=== PATIENT | male | born 1950 | race American Indian/Alaskan Native ===

== ENCOUNTER 2021-01-16 13:40 | Observation (INO) | payer SELFPAY ==
--- NOTE | 2021-01-16 13:56 | Emergency Department Report ---
ED Chest Pain HPI - General Chief Complaint: Chest Pain Stated Complaint: CHEST PAIN PUI?: No Time Seen by Provider: 01/16/21 13:42 Source: patient, RN notes reviewed Mode of arrival: Stretcher Limitations: No Limitations - History of Present Illness Initial Comments: The patient is a 71-year-old gentleman. He is not known to myself previously. He has a history of hypertension, coronary artery disease, status post CABG. He is brought to the hospital by EMS with a complaint of chest pain. The patient has reported chronic sternal chest pain since his CABG a few months ago at [facility] in [facility]. However, over the past few days, he has developed central and left-sided chest pain, which he states does not radiate to the back, arms or neck. He denies vomiting, diaphoresis and exertional shortness of breath. He does report multiple psychosocial stressors. He states that his pain started before a recent 2-hour trip in the airplane to [place]. He denies Covid symptoms. He currently denies headache, neck pain, abdominal pain, vomiting, diaphoresis, hematemesis and bright red blood per rectum. He reports compliance with his outpatient medications MD Complaint: chest pain -: Gradual, days(s) Onset: during rest Pain Location: substernal, left chest Quality: tightness Consistency: intermittent Improves With: nothing Worsens With: nothing Aspirin use within the Past 7 Days: (1) Yes - Related Data On Oral Contraceptives: No Home Medications Medication Instructions Recorded Confirmed Last Taken Aspirin [Aspirin BABY CHEW TAB] 81 mg PO QDAY 01/16/21 01/16/21 Unknown Finasteride [Proscar] 5 mg PO QDAY 01/16/21 01/16/21 Unknown Furosemide [Lasix] 20 mg PO QDAY 01/16/21 01/16/21 Unknown Melatonin [Melatonin 10MG TAB] 10 mg PO QHS 01/16/21 01/16/21 Unknown Tamsulosin [Flomax] 0.4 mg PO QDAY 01/16/21 01/16/21 Unknown lisinopriL [Lisinopril] 20 mg PO QDAY 01/16/21 01/16/21 Unknown Allergies Allergy/AdvReac Type Severity Reaction Status Date / Time No Known Allergies Allergy Unverified 01/16/21 13:44 Heart Score - HEART Score History: Slightly suspicious EKG: Non-specific Age: > 65 Risk factors: > 3 risk factors or hx of atherosclerotic disease Troponin: < normal limit HEART Score: 5 - EKG Read Time Time EKG Completed: 13:53 EKG Read Time: 13:53 - Critical Actions Critical Actions: 4-6 pts:12-16.6% risk of adverse cardiac event. Should be admitted ED Review of Systems ROS: Stated complaint: CHEST PAIN Other details as noted in HPI Constitutional: denies: fever Eyes: denies: eye discharge ENT: denies: epistaxis Respiratory: denies: cough Cardiovascular: chest pain Gastrointestinal: denies: abdominal pain Musculoskeletal: denies: back pain Neurological: weakness Psychiatric: anxiety ED Past Medical Hx - Medications Home Medications: Home Medications Medication Instructions Recorded Confirmed Last Taken Type Aspirin [Aspirin BABY CHEW TAB] 81 mg PO QDAY 01/16/21 01/16/21 Unknown History Finasteride [Proscar] 5 mg PO QDAY 01/16/21 01/16/21 Unknown History Furosemide [Lasix] 20 mg PO QDAY 01/16/21 01/16/21 Unknown History Melatonin [Melatonin 10MG TAB] 10 mg PO QHS 01/16/21 01/16/21 Unknown History Tamsulosin [Flomax] 0.4 mg PO QDAY 01/16/21 01/16/21 Unknown History lisinopriL [Lisinopril] 20 mg PO QDAY 01/16/21 01/16/21 Unknown History ED Physical Exam - General Limitations: No Limitations General appearance: alert, in no apparent distress - Head Head exam: Present: atraumatic, normocephalic - Eye Eye exam: Present: normal appearance, EOMI. Absent: nystagmus - ENT ENT exam: Present: normal exam, normal orophraynx, mucous membranes moist, normal external ear exam - Neck Neck exam: Present: normal inspection, full ROM. Absent: tenderness, meningismus - Respiratory Respiratory exam: Present: normal lung sounds bilaterally. Absent: respiratory distress, wheezes, rales, rhonchi, stridor, decreased breath sounds - Cardiovascular Cardiovascular Exam: Present: regular rate, normal rhythm, normal heart sounds. Absent: bradycardia, tachycardia, irregular rhythm, systolic murmur, diastolic murmur, rubs, gallop - GI/Abdominal GI/Abdominal exam: Present: soft. Absent: distended, tenderness, guarding, r ebound, rigid, pulsatile mass - Rectal Rectal exam: Present: deferred - Extremities Exam Extremities exam: Present: normal inspection, full ROM, other (2+ pulses noted in the bilateral upper and lower extremities. There is no palpable cord. negative Homans sign. Muscular compartments are soft. The pelvis is stable.). Absent: pedal edema, calf tenderness - Back Exam Back exam: Present: normal inspection, full ROM. Absent: tenderness, CVA tenderness (R), CVA tenderness (L), paraspinal tenderness, vertebral tenderness - Neurological Exam Neurological exam: Present: alert, oriented X3, other (No facial droop. Tongue midline. Extraocular movements intact bilaterally. Facial sensation intact to light touch in V1, V2, V3 distribution bilaterally. 5 and a 5 strength in 4 extremities. Sensation intact to light touch in 4 extremities.). Absent: motor sensory deficit - Psychiatric Psychiatric exam: Present: normal affect, normal mood - Skin Skin exam: Present: warm, dry, intact, normal color. Absent: rash ED Course Vital Signs 01/16/21 01/16/21 01/16/21 13:53 14:00 14:08 Pulse Rate 68 65 Respiratory 14 20 Rate Blood Pressure 140/81 O2 Sat by Pulse 99 98 99 Oximetry 01/16/21 01/16/21 01/16/21 14:16 14:30 14:45 Pulse Rate 68 61 68 Respiratory 18 14 17 Rate Blood Pressure 135/87 141/84 162/86 O2 Sat by Pulse 99 97 98 Oximetry 01/16/21 01/16/21 01/16/21 15:00 15:16 15:30 Pulse Rate 74 74 69 Respiratory 17 17 16 Rate Blood Pressure 177/92 168/90 181/89 O2 Sat by Pulse 98 94 99 Oximetry 01/16/21 01/16/21 01/16/21 15:46 16:00 16:16 Pulse Rate 70 60 66 Respiratory 18 15 14 Rate Blood Pressure 172/93 175/83 185/91 O2 Sat by Pulse 96 98 99 Oximetry 01/16/21 01/16/21 16:30 16:40 Pulse Rate 73 61 Respiratory 19 17 Rate Blood Pressure 177/87 177/87 O2 Sat by Pulse 99 99 Oximetry RAFI score - Rafi Score Age > 65: (1) Yes Aspirin use within the Past 7 Days: (1) Yes 3 or more CAD Risk Factors: (1) Yes 2 or more Angina events in past 24 hrs: (1) Yes Known CAD with more than 50% Stenosis: (0) No Elevated Cardiac Markers: (0) No ST Deviation Greater than 0.5mm: (0) No RAFI Score: 4 ED Medical Decision Making - Lab Data Result diagrams: 01/16/21 14:34 01/16/21 14:34 Vital Signs 01/16/21 14:08 O2 Sat by Pulse 99 Oximetry Lab Results 01/16/21 01/16/21 01/16/21 Range/Units 14:34 14:34 14:34 WBC 3.9 L (4.5-11.0) K/mm3 RBC 4.36 (3.65-5.03) M/mm3 Hgb 12.7 (11.8-15.2) gm/dl Hct 39.1 (35.5-45.6) % MCV 90 (84-94) fl MCH 29 (28-32) pg MCHC 33 (32-34) % RDW 15.5 H (13.2-15.2) % Plt Count 221 (140-440) K/mm3 Lymph % (Auto) 41.0 H (13.4-35.0) % Nelson % (Auto) 12.7 H (0.0-7.3) % Eos % (Auto) 3.9 (0.0-4.3) % Baso % (Auto) 0.8 (0.0-1.8) % Lymph # (Auto) 1.6 (1.2-5.4) K/mm3 Nelson # (Auto) 0.5 (0.0-0.8) K/mm3 Eos # (Auto) 0.2 (0.0-0.4) K/mm3 Baso # (Auto) 0.0 (0.0-0.1) K/mm3 Seg Neutrophils % 41.6 (40.0-70.0) % Seg Neutrophils # 1.6 L (1.8-7.7) K/mm3 PT (12.2-14.9) Sec. INR (0.87-1.13) Sodium 139 (137-145) mmol/L Potassium 4.1 (3.6-5.0) mmol/L Chloride 104.7 (98-107) mmol/L Carbon Dioxide 23 (22-30) mmol/L Anion Gap 15 mmol/L BUN 18 (9-20) mg/dL Creatinine 1.0 (0.8-1.3) mg/dL Estimated GFR > 60 ml/min BUN/Creatinine Ratio 18 % Glucose 84 (75-100) mg/dL Calcium 9.5 (8.4-10.2) mg/dL Total Bilirubin 0.60 (0.1-1.2) mg/dL AST 17 (5-40) units/L ALT 13 (7-56) units/L Alkaline Phosphatase 91 (35-129) units/L Troponin T < 0.010 (0.00-0.029) ng/mL Total Protein 7.2 (6.3-8.2) g/dL Albumin 4.2 (3.9-5) g/dL Albumin/Globulin Ratio 1.4 % 01/16/21 Range/Units 14:34 WBC (4.5-11.0) K/mm3 RBC (3.65-5.03) M/mm3 Hgb (11.8-15.2) gm/dl Hct (35.5-45.6) % MCV (84-94) fl MCH (28-32) pg MCHC (32-34) % RDW (13.2-15.2) % Plt Count (140-440) K/mm3 Lymph % (Auto) (13.4-35.0) % Nelson % (Auto) (0.0-7.3) % Eos % (Auto) (0.0-4.3) % Baso % (Auto) (0.0-1.8) % Lymph # (Auto) (1.2-5.4) K/mm3 Nelson # (Auto) (0.0-0.8) K/mm3 Eos # (Auto) (0.0-0.4) K/mm3 Baso # (Auto) (0.0-0.1) K/mm3 Seg Neutrophils % (40.0-70.0) % Seg Neutrophils # (1.8-7.7) K/mm3 PT 14.3 (12.2-14.9) Sec. INR 1.00 (0.87-1.13) Sodium (137-145) mmol/L Potassium (3.6-5.0) mmol/L Chloride (98-107) mmol/L Carbon Dioxide (22-30) mmol/L Anion Gap mmol/L BUN (9-20) mg/dL Creatinine (0.8-1.3) mg/dL Estimated GFR ml/min BUN/Creatinine Ratio % Glucose (75-100) mg/dL Calcium (8.4-10.2) mg/dL Total Bilirubin (0.1-1.2) mg/dL AST (5-40) units/L ALT (7-56) units/L Alkaline Phosphatase (35-129) units/L Troponin T (0.00-0.029) ng/mL Total Protein (6.3-8.2) g/dL Albumin (3.9-5) g/dL Albumin/Globulin Ratio % - EKG Data -: EKG Interpreted by [facility] EKG shows normal: sinus rhythm Rate: normal - EKG Data When compared to previous EKG there are: previous EKG unavailable 01/16/21 15:40 EKG is interpreted at 13: 53 Sinus rhythm, 66 bpm. Left axis deviation. Normal P wave axis. Left anterior fascicular block. Biphasic T wave in V2. Low voltage in the lateral leads. This is an abnormal EKG. The EKG is not consistent with a STEMI. EKG t ransmitted to interventional cardiology, Dr. Warren. He also advises that emergent activation of the cardiac catheterization lab is not indicated based off of his initial EKG morphology. - Radiology Data Radiology results: pending, report reviewed, image reviewed Chest single view INDICATION: Chest pain IMPRESSION: Cardiomegaly. The lungs are clear. There is evidence of a large hiatal hernia. The lungs are grossly clear. Signer Name: Abimael Wray MD Signed: 01/16/2021 3:07 PM Workstation Name: [id number] - Medical Decision Making Differential diagnosis, include but not limited to: GERD, gastritis, hiatal hernia, pneumonia, costochondritis, acute coronary syndrome, sternal pain from CABG Assessment and plan: 71-year-old gentleman, who was afebrile, with reassuring vital signs, who is not currently tachycardic, tachypneic or hypoxic, who denies leg pain and leg swelling, who has chest pain that preceded a 2-hour plane flight, who also endorses chronic sternal chest pain, after a CABG a few months ago, who is not currently vomiting, diaphoretic and in no acute distress. Chest pain historically seems atypical, however, the EKG is very abnormal I am concerned about Wellens syndrome regarding his EKG morphology. He appears to have a biphasic T wave in V2. The EKG was transmitted to interventional cardiology. Dr. Warren, our crtt has evaluated the EKG, advises that emergent activation of the cardiac catheterization lab is not indicated at this time. Have been discussed with conventional cardiology on-call, Dr. Bernal. Have discussed the patient's history, physical, EKG findings, and he is also personally reviewed the patient's EKG. Advises that cardiology will follow in consultation, and advises heparinization if troponin is elevated. The patient himself has equal pulses in upper and lower extremities, no pulsatile abdominal mass, and is not hypertensive. Therefore do not suspect acute aortic disease. I do suspect that this EKG is his chronic EKG morphology, but at this point time, do not have access to his outpatient medical records. He reports that he had his CABG performed at [facility] in [facility]. I have requested patient's old medical records. Dr. Bernal of [place] [facility] will follow in consultation. Have itz mmended admission to the medical service for accelerated cardiac risk ratification. Dr. Ariza to admit to the medical service. Laboratory studies x-ray, will be obtained. Appropriate medications will be ordered. Defer to inpatient team and cardiology. The moment, patient resting comfortably in stretcher, in no acute distress Critical care attestation.: If time is entered above; I have spent that time in minutes in the direct care of this critically ill patient, excluding procedure time. ED Disposition Clinical Impression: Acute chest pain, History of coronary artery bypass graft, Abnormal EKG Disposition: ADMITTED INPATIENT Is pt being admited?: Yes Does the pt Need Aspirin: No (Given by EMS) Condition: Stable
[2021-01-16] MEDS ORDERED: NITROGLYCERIN 0.4 MG TAB SUBL SL ONE (14:08)
[2021-01-16 14:51] LABS: Basophils % (Auto) 0.8 % (0.0-1.8); Eosinophils # (Auto) 0.2 K/mm3 (0.0-0.4); Eosinophils % (Auto) 3.9 % (0.0-4.3); Hematocrit 39.1 % (35.5-45.6); Hemoglobin 12.7 gm/dl (11.8-15.2); Lymphocytes # (Auto) 1.6 K/mm3 (1.2-5.4); Mean Corpuscular HGB Conc 33 % (32-34); Mean Corpuscular Volume 90 fl (84-94); Monocytes # (Auto) 0.5 K/mm3 (0.0-0.8); Monocytes % (Auto) 12.7 % (0.0-7.3); Platelet Count 221 K/mm3 (140-440); Red Blood Count 4.36 M/mm3 (3.65-5.03); Red Cell Distribution Width 15.5 % (13.2-15.2)
[2021-01-16 15:10] LABS: Alanine Aminotransferase 13 units/L (7-56); Albumin 4.2 g/dL (3.9-5); BUN/Creatinine Ratio 18; Blood Urea Nitrogen 18 mg/dL (9-20); Calcium 9.5 mg/dL (8.4-10.2); Hemolysis Index 25
[2021-01-16] MEDS ORDERED: ASPIRIN 81 MG TAB CHEW PO STA (15:39)
[2021-01-16] MEDS ORDERED: NITROGLYCERIN 0.4 MG TAB SUBL SL PRN (15:39)
[2021-01-16] MEDS ORDERED: ACETAMINOPHEN 325 MG TAB PO PRN ×2 (15:39)
[2021-01-16] MEDS ORDERED: ONDANSETRON 4 MG/2 ML INJ IV PRN (15:39)
[2021-01-16] MEDS ORDERED: HYDROmorphone 1 MG/1 ML INJ IV PRN (15:39)
[2021-01-16] MEDS ORDERED: ALBUTEROL 2.5 MG/3 ML NEBU IH PRN (15:39)
--- NOTE | 2021-01-16 15:39 | History and Physical Report ---
History of Present Illness Chief complaint: My chest was hurting History of present illness: 71 YO Male with HTN, BPH presents ED for evaluation. Patient states that he was in his usual state of health and was flying back to his home country of [place]. Patient states while at the airport he became stressed when he found that he needed additional documentation to leave [place]. Patient states he experienced a sudden onset of chest pain. Patient states that pain was 6/10, constant, substernal, nonradiating, worsened with exertion, relieved with rest, associated with diaphoresis. EMS was notified and upon arrival the patient was found to be in distress and subsequent transported to [facility] for further care and evaluation of the aforementioned symptoms. The patient was seen and evaluated in the emergency department. All lab and imaging studies reviewed. Patient found to have symptoms consistent with acute coronary syndrome with concomitant EKG changes. Cardiology team consulted in ED. Patient placed in observation status and admitted to telemetry and initiated on ACS protocol. Patient denies fever, palpitation, productive cough, skin rash, recent ill contact, or known exposure to COVID-19. No prior admission for review. All medication listed at time of admission has been reconciled. Advanced care planning conducted in ED. Past History Past Medical History: hypertension, other (See HPI) Past Surgical History: No surgical history, Other (Reviewed) Social history: single. denies: smoking, alcohol abuse Family history: hypertension Medications and Allergies Allergies Allergy/AdvReac Type Severity Reaction Status Date / Time No Known Allergies Allergy Unverified 01/16/21 13:44 Home Medications Medication Instructions Recorded Confirmed Last Taken Type Aspirin [Aspirin BABY CHEW TAB] 81 mg PO QDAY 01/16/21 01/16/21 Unknown History Finasteride [Proscar] 5 mg PO QDAY 01/16/21 01/16/21 Unknown History Furosemide [Lasix] 20 mg PO QDAY 01/16/21 01/16/21 Unknown History Melatonin [Melatonin 10MG TAB] 10 mg PO QHS 01/16/21 01/16/21 Unknown History Tamsulosin [Flomax] 0.4 mg PO QDAY 01/16/21 01/16/21 Unknown History lisinopriL [Lisinopril] 20 mg PO QDAY 01/16/21 01/16/21 Unknown History Review of Systems Constitutional: no weight loss, no weight gain, no fever, no chills, no sweats Ears, nose, mouth and throat: no ear pain, no ear discharge, no decreased hearing, no nasal congestion Cardiovascular: chest pain, decreased exercise tolerance, no palpitations, no edema, no syncope Respiratory: no cough, no cough with sputum, no excessive sputum, no hemoptysis, no shortness of breath Gastrointestinal: no abdominal pain, no vomiting, no diarrhea, no constipation, no change in bowel habits Genitourinary Male: no hematuria, no flank pain, no discharge, no urinary frequency, no urinary hesitancy Rectal: no pain, no incontinence Musculoskeletal: no neck stiffness, no neck pain, no arm numbness/tingling, no low back pain, no leg numbness/tingling Integumentary: no rash, no redness, no sores, no jaundice, no boils Neurological: no head injury, no paralysis, no weakness, no parathesias, no tingling, no seizures, no syncope Psychiatric: anxiety, no change in sleep habits, no sleep disturbances, no insomnia, no change in appetite, no suicidal ideation Endocrine: no cold intolerance, no heat intolerance, no excessive thirst, no polyuria, no excessive sweating, no weight change Hematologic/Lymphatic: no easy bruising, no lymphadenopathy Allergic/Immunologic: no urticaria, no allergic rhinitis, no wheezing, no persistent infections, no anaphylaxis Exam - Constitutional Vitals: Temp Pulse Resp BP Pulse Ox 99 01/16/21 14:08 General appearance: Present: mild distress - EENT Eyes: Present: PERRL ENT: hearing intact, clear oral mucosa - Neck Neck: Present: supple, normal ROM - Respiratory Respiratory effort: normal Respiratory: bilateral: CTA - Cardiovascular Heart Sounds: Present: S1 & S2. Absent: rub, click - Extremities Extremities: pulses symmetrical, No edema Peripheral Pulses: within normal limits - Abdominal General gastrointestinal: Present: soft, non-tender, non-distended, normal bowel sounds Male genitourinary: Present: normal - Integumentary Integumentary: Present: clear, warm, dry - Musculoskeletal Musculoskeletal: gait normal, strength equal bilaterally - Psychiatric Psychiatric: appropriate mood/affect, intact judgment & insight - Neurologic Neurologic: CNII-XII intact, moves all extremities HEART Score - HEART Score Troponin: Troponin T < 0.010 ng/mL (0.00-0.029) 01/16/21 14:34 Results - Labs CBC & Chem 7: 01/16/21 14:34 01/16/21 14:34 Labs: Abnormal lab results 01/16/21 Range/Units 14:34 WBC 3.9 L (4.5-11.0) K/mm3 RDW 15.5 H (13.2-15.2) % Lymph % (Auto) 41.0 H (13.4-35.0) % [place] % (Auto) 12.7 H (0.0-7.3) % Seg Neutrophils # 1.6 L (1.8-7.7) K/mm3 Assessment and Plan - Patient Problems (1) Angina at rest Current Visit: Yes Status: Acute Plan to address problem: Serial cardiac enzymes, EKG, remote telemetry, ACS protocol, cardiology team consulted in ED. (2) ACS (acute coronary syndrome) Current Visit: Yes Status: Acute Plan to address problem: Serial cardiac enzymes, EKG, telemetry, cardiology team consulted in ED, echocardiogram is ordered and pending at time of admission, morphine, supplemental oxygen, nitro, aspirin, supportive care, blood pressure control. (3) BPH (benign prostatic hyperplasia) Current Visit: Yes Status: Acute Plan to address problem: Continue Flomax, continue supportive care, outpatient urology follow-up. (4) Hypertension Current Visit: Yes Status: Acute Qualifiers: Hypertension type: primary hypertension Qualified Code(s): I10 - Essential (primary) hypertension Plan to address problem: Monitor blood pressure every shift, continue medical management (5) DVT prophylaxis Current Visit: Yes Status: Acute Plan to address problem: SCD to bilateral lower extremities while in bed, patient is ambulatory (6) Advance care planning Current Visit: Yes Status: Acute Plan to address problem: Disease education conducted, care plan discussed, diagnoses discussed, prognosis discussed, patient is full code. Patient acknowledges understanding and agreement with care plan, +30 minutes.
--- NOTE | 2021-01-16 16:11 | XRay Report ---
Chest single view INDICATION: Chest pain IMPRESSION: Cardiomegaly. The lungs are clear. There is evidence of a large hiatal hernia. The lungs are grossly clear. Signer Name: Abimael Wray MD Signed: 01/16/2021 4:07 PM Workstation Name: [id number]
[2021-01-16] MEDS: METOPROLOL TARTRATE 25 MG TAB PO SCH ×2 (17:00→21:34)
[2021-01-16] MEDS: oxyCODONE /ACETAMINOPHEN 5-325MG TAB PO PRN ×2 (17:01→23:23)
[2021-01-16] MEDS: MELATONIN 5 MG TAB PO SCH (21:33)
[2021-01-16] MEDS: FAMOTIDINE 10 MG TAB PO SCH (21:33)
[2021-01-16] MEDS ORDERED: NON-FORMULARY EACH (Melatonin [Melatonin 10mg Tab] 10 MG Tablet) PO SCH (22:00)
[2021-01-16] MEDS ORDERED: LACTULOSE 20 GM/30 ML ORAL LIQD PO PRN (22:14)
[2021-01-17] MEDS ORDERED: LORazepam 2 MG/ML VIAL IV PRN ×3 (08:09)
--- NOTE | 2021-01-17 08:09 | Progress Note ---
Assessment and Plan Assessment and plan: Chest pain. CAD. History of CABG x4 approximately 3 months ago. Hypertension BPH Etoh abuse. 01/17/2021. Await cardiology consultation. Patient with coronary artery disease and history of CABG x4 approximately 3 months ago. Continue to monitor serial cardiac enzymes and EKG. Continue telemetry monitoring. Follow-up echocardiogram. [facility] protocol. History Interval history: No new issues overnight. Hospitalist Physical - Constitutional Vitals: Temp Pulse Resp BP Pulse Ox 98.0 F 51 L 16 141/66 98 01/17/21 05:40 01/17/21 05:40 01/17/21 05:40 01/17/21 05:40 01/17/21 05:40 General appearance: Present: no acute distress - EENT Eyes: Present: PERRL, EOM intact ENT: hearing intact, clear oral mucosa, dentition normal - Neck Neck: Present: supple, normal ROM - Respiratory Respiratory effort: normal Respiratory: bilateral: CTA - Cardiovascular Rhythm: regular Heart Sounds: Present: S1 & S2. Absent: gallop, rub - Extremities Extremities: no ischemia, No edema, Full ROM - Abdominal General gastrointestinal: soft, non-tender, non-distended, normal bowel sounds - Integumentary Integumentary: Present: clear, warm, dry - Neurologic Neurologic: CNII-XII intact, moves all extremities HEART Score - HEART Score EKG: Non-specific Age: > 65 Risk factors: > 3 risk factors or hx of atherosclerotic disease Troponin: Troponin T < 0.010 ng/mL (0.00-0.029) 01/17/21 04:46 Troponin: < normal limit - Critical Actions Critical Actions: 4-6 pts:12-16.6% risk of adverse cardiac event. Should be admitted Results - Labs CBC & Chem 7: 01/16/21 14:34 01/16/21 14:34 Labs: Laboratory Last Values WBC 3.9 K/mm3 (4.5-11.0) L 01/16/21 14:34 RBC 4.36 M/mm3 (3.65-5.03) 01/16/21 14:34 Hgb 12.7 gm/dl (11.8-15.2) 01/16/21 14:34 Hct 39.1 % (35.5-45.6) 01/16/21 14:34 MCV 90 fl (84-94) 01/16/21 14:34 MCH 29 pg (28-32) 01/16/21 14:34 MCHC 33 % (32-34) 01/16/21 14:34 RDW 15.5 % (13.2-15.2) H 01/16/21 14:34 Plt Count 221 K/mm3 (140-440) 01/16/21 14:34 Lymph % (Auto) 41.0 % (13.4-35.0) H 01/16/21 14:34 [place] % (Auto) 12.7 % (0.0-7.3) H 01/16/21 14:34 Eos % (Auto) 3.9 % (0.0-4.3) 01/16/21 14:34 Baso % (Auto) 0.8 % (0.0-1.8) 01/16/21 14:34 Lymph # (Auto) 1.6 K/mm3 (1.2-5.4) 01/16/21 14:34 [place] # (Auto) 0.5 K/mm3 (0.0-0.8) 01/16/21 14:34 Eos # (Auto) 0.2 K/mm3 (0.0-0.4) 01/16/21 14:34 Baso # (Auto) 0.0 K/mm3 (0.0-0.1) 01/16/21 14:34 Seg Neutrophils % 41.6 % (40.0-70.0) 01/16/21 14:34 Seg Neutrophils # 1.6 K/mm3 (1.8-7.7) L 01/16/21 14:34 PT 14.3 Sec. (12.2-14.9) 01/16/21 14:34 INR 1.00 (0.87-1.13) 01/16/21 14:34 Sodium 139 mmol/L (137-145) 01/16/21 14:34 Potassium 4.1 mmol/L (3.6-5.0) 01/16/21 14:34 Chloride 104.7 mmol/L (98-107) 01/16/21 14:34 Carbon Dioxide 23 mmol/L (22-30) 01/16/21 14:34 Anion Gap 15 mmol/L 01/16/21 14:34 BUN 18 mg/dL (9-20) 01/16/21 14:34 Creatinine 1.0 mg/dL (0.8-1.3) 01/16/21 14:34 Estimated GFR > 60 ml/min 01/16/21 14:34 BUN/Creatinine Ratio 18 % 01/16/21 14:34 Glucose 84 mg/dL (75-100) 01/16/21 14:34 Calcium 9.5 mg/dL (8.4-10.2) 01/16/21 14:34 Total Bilirubin 0.60 mg/dL (0.1-1.2) 01/16/21 14:34 AST 17 units/L (5-40) 01/16/21 14:34 ALT 13 units/L (7-56) 01/16/21 14:34 Alkaline Phosphatase 91 units/L (35-129) 01/16/21 14:34 Troponin T < 0.010 ng/mL (0.00-0.029) 01/17/21 04:46 NT-Pro-B Natriuret Pep 297.7 pg/mL (0-900) 01/16/21 15:49 Total Protein 7.2 g/dL (6.3-8.2) 01/16/21 14:34 Albumin 4.2 g/dL (3.9-5) 01/16/21 14:34 Albumin/Globulin Ratio 1.4 % 01/16/21 14:34 Landin/IV: Voiding Method Urinal Active Medications - Current Medications Current Medications: Generic Name Dose Route Start Last Admin Trade Name Freq PRN Reason Stop Dose Admin Acetaminophen 650 mg 01/16/21 15:39 Acetaminophen 325 Mg Tab PO Q4H PRN Pain MILD(1-3)/Fever >100.5/CYR Albuterol 2.5 mg 01/16/21 15:39 Albuterol 2.5 Mg/3 Ml Nebu IH Q4H PRN Shortness Of Breath Aspirin 81 mg 01/17/21 10:00 Aspirin 81 Mg Tab Chew PO QDAY MARIELLE Atorvastatin Calcium 40 mg 01/16/21 22:00 01/16/21 21:33 Atorvastatin 40 Mg Tab PO 40 mg QHS MARIELLE Administration Famotidine 10 mg 01/16/21 22:00 01/16/21 21:33 Famotidine 10 Mg Tab PO 10 mg BID MARIELLE Administration Finasteride 5 mg 01/17/21 10:00 Finasteride 5 Mg Tab PO QDAY MARIELLE Furosemide 20 mg 01/17/21 10:00 Furosemide 20 Mg Tab PO QDAY [facility] Hydromorphone HCl 0.5 mg 01/16/21 15:39 01/17/21 07:51 Hydromorphone 1 Mg/1 Ml Inj IV 0.5 mg Q23H PRN Administration Pain , Severe (7-10) Lactulose 20 gm 01/16/21 22:14 01/16/21 23:22 Lactulose 20 Gm/30 Ml Oral Liqd PO 20 gm QHS PRN Administration Constipation Lisinopril 20 mg 01/17/21 10:00 Lisinopril 20 Mg Tab PO QDAY [facility] Melatonin 10 mg 01/16/21 22:00 01/16/21 21:33 Melatonin 5 Mg Tab PO 10 mg QHS MARIELLE Administration Metoprolol Tartrate 12.5 mg 01/16/21 17:00 01/16/21 21:34 Metoprolol Tartrate 25 Mg Tab PO 12.5 mg BID [facility] Administration Nitroglycerin 0.4 mg 01/16/21 15:39 Nitroglycerin 0.4 Mg Tab Subl SL Q5M PRN Chest Pain Ondansetron HCl 4 mg 01/16/21 15:39 Ondansetron 4 Mg/2 Ml Inj IV Q8H PRN Nausea And Vomiting Oxycodone/Acetaminophen 1 tab 01/16/21 15:39 01/16/21 23:23 Oxycodone /Acetaminophen 5-325mg Tab PO 1 tab Q16H PRN Administration Pain, Moderate (4-6) Pneumococcal Polyvalent Vaccine 0.5 ml 01/17/21 12:00 Pneumococcal 23 Valent 0.5 Ml Vial IM 01/17/21 12:01 .ONCE ONE Sodium Chloride 10 ml 01/16/21 22:00 01/17/21 07:40 Sodium Chloride 0.9% 10 Ml Flush Syringe IV Not Given BID [facility] Sodium Chloride 10 ml 01/16/21 15:39 Sodium Chloride 0.9% 10 Ml Flush Syringe IV PRN PRN LINE FLUSH Tamsulosin HCl 0.4 mg 01/17/21 10:00 Tamsulosin 0.4 Mg Cap PO QDAY [facility]
[2021-01-17] MEDS: FINASTERIDE 5 MG TAB PO SCH (10:06)
[2021-01-17] MEDS: LISINOPRIL 20 MG TAB PO SCH (10:06)
[2021-01-17] MEDS: FUROSEMIDE 20 MG TAB PO SCH (10:07)
[2021-01-17] MEDS: FAMOTIDINE 10 MG TAB PO SCH ×2 (10:07→21:17)
[2021-01-17] MEDS: ASPIRIN 81 MG TAB CHEW PO SCH (10:07)
[2021-01-17] MEDS: TAMSULOSIN 0.4 MG CAP PO SCH (10:07)
[2021-01-17] MEDS: METOPROLOL TARTRATE 25 MG TAB PO SCH ×2 (10:07→21:17)
--- NOTE | 2021-01-17 10:33 | Consultation ---
History of Present Illness Consult date: 01/17/21 Consult reason: chest pain History of present illness: Impression Noncardiac chest pain likely MSK, sharp over right shoulder, tender to chest Post CABG. ECG negative for acute ischemia, trop negative x3 NT-proBNP 297.7 Stress/anxiety disorder, liane recently with family life Depression HTN BPH Plan No acute CV process check echo to assess EF post CABG pt requested COVID test, he is trying to fly home to [facility] (he is from [place] where he had CABG) check PSA for BPH symptoms cont current for HTN statin therapy Needs anxiety/depression therapy. Past History Past Medical History: hypertension, other (See HPI) Past Surgical History: No surgical history, Other (Reviewed) Social history: single. denies: smoking, alcohol abuse Family history: hypertension Medications and Allergies Allergies Allergy/AdvReac Type Severity Reaction Status Date / Time No Known Allergies Allergy Unverified 01/16/21 13:44 Home Medications Medication Instructions Recorded Confirmed Last Taken Type Aspirin [Aspirin BABY CHEW TAB] 81 mg PO QDAY 01/16/21 01/16/21 Unknown History Finasteride [Proscar] 5 mg PO QDAY 01/16/21 01/16/21 Unknown History Furosemide [Lasix] 20 mg PO QDAY 01/16/21 01/16/21 Unknown History Melatonin [Melatonin 10MG TAB] 10 mg PO QHS 01/16/21 01/16/21 Unknown History Tamsulosin [Flomax] 0.4 mg PO QDAY 01/16/21 01/16/21 Unknown History lisinopriL [Lisinopril] 20 mg PO QDAY 01/16/21 01/16/21 Unknown History Active Meds: Active Medications Acetaminophen (Acetaminophen 325 Mg Tab) 650 mg PO Q4H PRN PRN Reason: Pain MILD(1-3)/Fever >100.5/CYR Albuterol (Albuterol 2.5 Mg/3 Ml Nebu) 2.5 mg IH Q4H PRN PRN Reason: Shortness Of Breath Aspirin (Aspirin 81 Mg Tab Chew) 81 mg PO QDAY [facility] Last Admin: 01/17/21 10:07 Dose: 81 mg Documented by: Atorvastatin Calcium (Atorvastatin 40 Mg Tab) 40 mg PO QHS [facility] Last Admin: 01/16/21 21:33 Dose: 40 mg Documented by: Famotidine (Famotidine 10 Mg Tab) 10 mg PO BID [facility] Last Admin: 01/17/21 10:07 Dose: 10 mg Documented by: Finasteride (Finasteride 5 Mg Tab) 5 mg PO QDAY [facility] Last Admin: 01/17/21 10:06 Dose: 5 mg Documented by: Furosemide (Furosemide 20 Mg Tab) 20 mg PO QDAY [facility] Last Admin: 01/17/21 10:07 Dose: 20 mg Documented by: Hydromorphone HCl (Hydromorphone 1 Mg/1 Ml Inj) 0.5 mg IV Q23H PRN PRN Reason: Pain , Severe (7-10) Last Admin: 01/17/21 07:51 Dose: 0.5 mg Documented by: Lactulose (Lactulose 20 Gm/30 Ml Oral Liqd) 20 gm PO QHS PRN PRN Reason: Constipation Last Admin: 01/16/21 23:22 Dose: 20 gm Documented by: Lisinopril (Lisinopril 20 Mg Tab) 20 mg PO QDAY [facility] Last Admin: 01/17/21 10:06 Dose: 20 mg Documented by: Lorazepam (Lorazepam 2 Mg/Ml Vial) 4 mg IV Q1H PRN PRN Reason: CIWA-Ar 16-25 Lorazepam (Lorazepam 2 Mg/Ml Vial) 2 mg IV Q1H PRN PRN Reason: CIWA-Ar 8-15 Lorazepam (Lorazepam 2 Mg/Ml Vial) 4 mg IV Q15MIN PRN PRN Reason: CIWA-Ar >25 Melatonin (Melatonin 5 Mg Tab) 10 mg PO QHS [facility] Last Admin: 01/16/21 21:33 Dose: 10 mg Documented by: Metoprolol Tartrate (Metoprolol Tartrate 25 Mg Tab) 12.5 mg PO BID [facility] Last Admin: 01/17/21 10:07 Dose: 12.5 mg Documented by: Nitroglycerin (Nitroglycerin 0.4 Mg Tab Subl) 0.4 mg SL Q5M PRN PRN Reason: Chest Pain Ondansetron HCl (Ondansetron 4 Mg/2 Ml Inj) 4 mg IV Q8H PRN PRN Reason: Nausea And Vomiting Oxycodone/Acetaminophen (Oxycodone /Acetaminophen 5-325mg Tab) 1 tab PO Q16H PRN PRN Reason: Pain, Moderate (4-6) Last Admin: 01/16/21 23:23 Dose: 1 tab Documented by: Pneumococcal Polyvalent Vaccine (Pneumococcal 23 Valent 0.5 Ml Vial) 0.5 ml IM .ONCE ONE Stop: 01/17/21 12:01 Sodium Chloride (Sodium Chloride 0.9% 10 Ml Flush Syringe) 10 ml IV BID [facility] Last Admin: 01/17/21 10:07 Dose: 10 ml Documented by: Sodium Chloride (Sodium Chloride 0.9% 10 Ml Flush Syringe) 10 ml IV PRN PRN PRN Reason: LINE FLUSH Tamsulosin HCl (Tamsulosin 0.4 Mg Cap) 0.4 mg PO QDAY [facility] Last Admin: 01/17/21 10:07 Dose: 0.4 mg Documented by: Review of Systems All systems: negative (impression) Physical Examination Vital Signs Pulse Resp Pulse Ox 68 14 99 01/16/21 13:53 01/16/21 13:53 01/16/21 13:53 General appearance: no acute distress HEENT: Positive: PERRL Neck: Positive: neck supple Cardiac: Positive: Reg Rate and Rhythm, S1/S2 Lungs: Positive: Normal Exam Neuro: Positive: Grossly Intact Abdomen: Positive: Soft Extremities: Absent: edema Results 01/16/21 14:34 01/16/21 14:34 Cardiac Enzymes 01/16/21 Range/Units 14:34 AST 17 (5-40) units/L Coagulation 01/16/21 Range/Units 14:34 PT 14.3 (12.2-14.9) Sec. INR 1.00 (0.87-1.13) CBC 01/16/21 Range/Units 14:34 WBC 3.9 L (4.5-11.0) K/mm3 RBC 4.36 (3.65-5.03) M/mm3 Hgb 12.7 (11.8-15.2) gm/dl Hct 39.1 (35.5-45.6) % Plt Count 221 (140-440) K/mm3 Lymph # (Auto) 1.6 (1.2-5.4) K/mm3 [place] # (Auto) 0.5 (0.0-0.8) K/mm3 Eos # (Auto) 0.2 (0.0-0.4) K/mm3 Baso # (Auto) 0.0 (0.0-0.1) K/mm3 Comprehensive Metabolic Panel 01/16/21 Range/Units 14:34 Sodium 139 (137-145) mmol/L Potassium 4.1 (3.6-5.0) mmol/L Chloride 104.7 (98-107) mmol/L Carbon Dioxide 23 (22-30) mmol/L BUN 18 (9-20) mg/dL Creatinine 1.0 (0.8-1.3) mg/dL Glucose 84 (75-100) mg/dL Calcium 9.5 (8.4-10.2) mg/dL AST 17 (5-40) units/L ALT 13 (7-56) units/L Alkaline Phosphatase 91 (35-129) units/L Total Protein 7.2 (6.3-8.2) g/dL Albumin 4.2 (3.9-5) g/dL
[2021-01-17] MEDS ORDERED: FLU VACC QUAD 2021-22(6MOS UP)/PF 60 MCG/0.5 ML SYRINGE IM ONE (12:00)
[2021-01-17] MEDS ORDERED: PNEUMOCOCCAL 23 Valent 0.5 ML VIAL IM ONE (12:00)
[2021-01-17] MEDS: MELATONIN 5 MG TAB PO SCH (21:18)
--- NOTE | 2021-01-18 08:39 | Progress Note ---
Assessment and Plan Assessment and plan: Chest pain. CAD. History of CABG x4 approximately 3 months ago. Hypertension BPH Etoh abuse. 01/17/2021. Await cardiology consultation. Patient with coronary artery disease and history of CABG x4 approximately 3 months ago. Continue to monitor serial cardiac enzymes and EKG. Continue telemetry monitoring. Follow-up echocardiogram. [facility] protocol. 01/18/2021. ECG negative for acute ischemia, trop negative x3. Cardiology feels that there is no acute cardiovascular process. We will check echocardiogram to assess EF s/p CABG. Follow-up Covid test per patient's request. History Interval history: No new issues overnight. Hospitalist Physical - Constitutional Vitals: Temp Pulse Resp BP Pulse Ox 97.7 F 54 L 18 115/60 98 01/18/21 04:06 01/18/21 07:40 01/18/21 07:47 01/18/21 07:47 01/18/21 07:47 General appearance: Present: no acute distress - EENT Eyes: Present: PERRL, EOM intact ENT: hearing intact, clear oral mucosa, dentition normal - Neck Neck: Present: supple, normal ROM - Respiratory Respiratory effort: normal Respiratory: bilateral: CTA - Cardiovascular Rhythm: regular Heart Sounds: Present: S1 & S2. Absent: gallop, rub - Extremities Extremities: no ischemia, No edema, Full ROM - Abdominal General gastrointestinal: soft, non-tender, non-distended, normal bowel sounds - Integumentary Integumentary: Present: clear, warm, dry - Neurologic Neurologic: CNII-XII intact, moves all extremities HEART Score - HEART Score EKG: Non-specific Age: > 65 Risk factors: > 3 risk factors or hx of atherosclerotic disease Troponin: Troponin T < 0.010 ng/mL (0.00-0.029) 01/17/21 04:46 Troponin: < normal limit - Critical Actions Critical Actions: 4-6 pts:12-16.6% risk of adverse cardiac event. Should be admitted Results - Labs CBC & Chem 7: 01/16/21 14:34 01/16/21 14:34 Labs: Laboratory Last Values WBC 3.9 K/mm3 (4.5-11.0) L 01/16/21 14:34 RBC 4.36 M/mm3 (3.65-5.03) 01/16/21 14:34 Hgb 12.7 gm/dl (11.8-15.2) 01/16/21 14:34 Hct 39.1 % (35.5-45.6) 01/16/21 14:34 MCV 90 fl (84-94) 01/16/21 14:34 MCH 29 pg (28-32) 01/16/21 14:34 MCHC 33 % (32-34) 01/16/21 14:34 RDW 15.5 % (13.2-15.2) H 01/16/21 14:34 Plt Count 221 K/mm3 (140-440) 01/16/21 14:34 Lymph % (Auto) 41.0 % (13.4-35.0) H 01/16/21 14:34 [place] % (Auto) 12.7 % (0.0-7.3) H 01/16/21 14:34 Eos % (Auto) 3.9 % (0.0-4.3) 01/16/21 14:34 Baso % (Auto) 0.8 % (0.0-1.8) 01/16/21 14:34 Lymph # (Auto) 1.6 K/mm3 (1.2-5.4) 01/16/21 14:34 [place] # (Auto) 0.5 K/mm3 (0.0-0.8) 01/16/21 14:34 Eos # (Auto) 0.2 K/mm3 (0.0-0.4) 01/16/21 14:34 Baso # (Auto) 0.0 K/mm3 (0.0-0.1) 01/16/21 14:34 Seg Neutrophils % 41.6 % (40.0-70.0) 01/16/21 14:34 Seg Neutrophils # 1.6 K/mm3 (1.8-7.7) L 01/16/21 14:34 PT 14.3 Sec. (12.2-14.9) 01/16/21 14:34 INR 1.00 (0.87-1.13) 01/16/21 14:34 Sodium 139 mmol/L (137-145) 01/16/21 14:34 Potassium 4.1 mmol/L (3.6-5.0) 01/16/21 14:34 Chloride 104.7 mmol/L (98-107) 01/16/21 14:34 Carbon Dioxide 23 mmol/L (22-30) 01/16/21 14:34 Anion Gap 15 mmol/L 01/16/21 14:34 BUN 18 mg/dL (9-20) 01/16/21 14:34 Creatinine 1.0 mg/dL (0.8-1.3) 01/16/21 14:34 Estimated GFR > 60 ml/min 01/16/21 14:34 BUN/Creatinine Ratio 18 % 01/16/21 14:34 Glucose 84 mg/dL (75-100) 01/16/21 14:34 Calcium 9.5 mg/dL (8.4-10.2) 01/16/21 14:34 Total Bilirubin 0.60 mg/dL (0.1-1.2) 01/16/21 14:34 AST 17 units/L (5-40) 01/16/21 14:34 ALT 13 units/L (7-56) 01/16/21 14:34 Alkaline Phosphatase 91 units/L (35-129) 01/16/21 14:34 Troponin T < 0.010 ng/mL (0.00-0.029) 01/17/21 04:46 NT-Pro-B Natriuret Pep 297.7 pg/mL (0-900) 01/16/21 15:49 Total Protein 7.2 g/dL (6.3-8.2) 01/16/21 14:34 Albumin 4.2 g/dL (3.9-5) 01/16/21 14:34 Albumin/Globulin Ratio 1.4 % 01/16/21 14:34 Prostate Specific Ag 0.44 ng/mL (0.00-4.00) 01/17/21 14:31 Landni/IV: Voiding Method Toilet Active Medications - Current Medications Current Medications: Generic Name Dose Route Start Last Admin Trade Name Freq PRN Reason Stop Dose Admin Acetaminophen 650 mg 01/16/21 15:39 Acetaminophen 325 Mg Tab PO Q4H PRN Pain MILD(1-3)/Fever >100.5/CYR Albuterol 2.5 mg 01/16/21 15:39 Albuterol 2.5 Mg/3 Ml Nebu IH Q4H PRN Shortness Of Breath Aspirin 81 mg 01/17/21 10:00 01/17/21 10:07 Aspirin 81 Mg Tab Chew PO 81 mg QDAY MARIELLE Administration Atorvastatin Calcium 40 mg 01/16/21 22:00 01/17/21 21:18 Atorvastatin 40 Mg Tab PO 40 mg QHS MARIELLE Administration Famotidine 10 mg 01/16/21 22:00 01/17/21 21:17 Famotidine 10 Mg Tab PO 10 mg BID MARIELLE Administration Finasteride 5 mg 01/17/21 10:00 01/17/21 10:06 Finasteride 5 Mg Tab PO 5 mg QDAY MARIELLE Administration Furosemide 20 mg 01/17/21 10:00 01/17/21 10:07 Furosemide 20 Mg Tab PO 20 mg QDAY MARIELLE Administration Hydromorphone HCl 0.5 mg 01/16/21 15:39 01/17/21 07:51 Hydromorphone 1 Mg/1 Ml Inj IV 0.5 mg Q23H PRN Administration Pain , Severe (7-10) Lactulose 20 gm 01/16/21 22:14 01/16/21 23:22 Lactulose 20 Gm/30 Ml Oral Liqd PO 20 gm QHS PRN Administration Constipation Lisinopril 20 mg 01/17/21 10:00 01/17/21 10:06 Lisinopril 20 Mg Tab PO 20 mg QDAY MARIELLE Administration Lorazepam 4 mg 01/17/21 08:09 Lorazepam 2 Mg/Ml Vial IV Q1H PRN CIWA-Ar 16-25 Lorazepam 2 mg 01/17/21 08:09 Lorazepam 2 Mg/Ml Vial IV Q1H PRN CIWA-Ar 8-15 Lorazepam 4 mg 01/17/21 08:09 Lorazepam 2 Mg/Ml Vial IV Q15MIN PRN CIWA-Ar >25 Melatonin 10 mg 01/16/21 22:00 01/17/21 21:18 Melatonin 5 Mg Tab PO 10 mg QHS MARIELLE Administration Metoprolol Tartrate 12.5 mg 01/16/21 17:00 01/17/21 21:17 Metoprolol Tartrate 25 Mg Tab PO 12.5 mg BID MARIELLE Administration Nitroglycerin 0.4 mg 01/16/21 15:39 Nitroglycerin 0.4 Mg Tab Subl SL Q5M PRN Chest Pain Ondansetron HCl 4 mg 01/16/21 15:39 Ondansetron 4 Mg/2 Ml Inj IV Q8H PRN Nausea And Vomiting Oxycodone/Acetaminophen 1 tab 01/16/21 15:39 01/16/21 23:23 Oxycodone /Acetaminophen 5-325mg Tab PO 1 tab Q16H PRN Administration Pain, Moderate (4-6) Sodium Chloride 10 ml 01/16/21 22:00 01/17/21 10:07 Sodium Chloride 0.9% 10 Ml Flush Syringe IV 10 ml BID MARIELLE Administration Sodium Chloride 10 ml 01/16/21 15:39 Sodium Chloride 0.9% 10 Ml Flush Syringe IV PRN PRN LINE FLUSH Tamsulosin HCl 0.4 mg 01/17/21 10:00 01/17/21 10:07 Tamsulosin 0.4 Mg Cap PO 0.4 mg QDAY MARIELLE Administration
[2021-01-18] MEDS: FINASTERIDE 5 MG TAB PO SCH (10:26)
[2021-01-18] MEDS: LISINOPRIL 20 MG TAB PO SCH (10:26)
[2021-01-18] MEDS: FAMOTIDINE 10 MG TAB PO SCH ×2 (10:26→22:09)
[2021-01-18] MEDS: ASPIRIN 81 MG TAB CHEW PO SCH (10:26)
[2021-01-18] MEDS: METOPROLOL TARTRATE 25 MG TAB PO SCH ×2 (10:26→22:10)
[2021-01-18] MEDS: TAMSULOSIN 0.4 MG CAP PO SCH (10:26)
[2021-01-18] MEDS: FUROSEMIDE 20 MG TAB PO SCH (10:26)
--- NOTE | 2021-01-18 17:18 | Progress Note ---
Subjective Date of service: 01/18/21 Interval history: Impression Noncardiac chest pain likely MSK, sharp over right shoulder, tender to chest Post CABG. ECG negative for acute ischemia, trop negative x3 NT-proBNP 297.7 Stress/anxiety disorder, liane recently with family life Depression HTN BPH Plan No acute CV process, probable stress-related symptoms Covid-19 negative PSA normal If he feels well in AM, he would like to skip and try to travel to [facility] Objective Vital Signs Temp Pulse Resp BP BP Pulse Ox 01/18/21 10:00 73 98 01/18/21 08:15 96 01/18/21 07:47 18 115/60 98 01/18/21 07:40 54 L 98 01/18/21 04:06 97.7 F 59 L 16 124/64 98 01/17/21 23:42 97.8 F 69 16 126/66 97 01/17/21 22:00 57 L 01/17/21 21:47 99 01/17/21 19:54 98 01/17/21 19:10 97.6 F 73 16 137/76 98 - Physical Examination General: Appears Well HEENT: Positive: PERRL Neck: Positive: neck supple Cardiac: Positive: Reg Rate and Rhythm, S1/S2 Lungs: Positive: Normal Exam Neuro: Positive: Grossly Intact Abdomen: Positive: Soft Extremities: Absent: edema
[2021-01-18] MEDS: MELATONIN 5 MG TAB PO SCH (22:10)
[2021-01-19 04:45] VITALS: BP 160/72
[2021-01-19] MEDS: LISINOPRIL 20 MG TAB PO SCH (09:34)
[2021-01-19] MEDS: ASPIRIN 81 MG TAB CHEW PO SCH (09:35)
[2021-01-19] MEDS: METOPROLOL TARTRATE 25 MG TAB PO SCH (09:35)
[2021-01-19] MEDS: FUROSEMIDE 20 MG TAB PO SCH (09:35)
[2021-01-19] MEDS: FINASTERIDE 5 MG TAB PO SCH (09:35)
[2021-01-19] MEDS: FAMOTIDINE 10 MG TAB PO SCH (09:35)
[2021-01-19] MEDS: TAMSULOSIN 0.4 MG CAP PO SCH (09:35)
--- NOTE | 2021-01-19 09:51 | Discharge Summary ---
Providers - Providers Date of Admission: 01/16/21 15:40 Date of discharge: 01/19/21 Attending physician: OTIS EPPERSON 01/16/21 Consult to Cardiac Rehabilitation [CONS] Routine Reason For Exam: Phase I 01/16/21 14:08 Consult to Physician [CONS] Stat Comment: Consulting Provider: CAPRI URIARTE Physician Instructions: Reason For Exam: acute chest pain Primary care physician: PHOTOGRAPHER Hospitalization Reason for admission: cp Condition: Stable Hospital course: 71-year-old male with past medical history of hypertension and BPH presented through the emergency department with complaints of chest pain. The patient was initially admitted with diagnosis of acute coronary syndrome and angina. Ca rdiology was consulted and felt that the patient had noncardiac chest pain. Cardiology felt that the pain was likely musculoskeletal with characteristics of pain over right shoulder and tender to palpation to anterior chest. EKG was negative for acute ischemia and troponin negative x3. BNP also negative. Also, cardiology felt patient may have stress/anxiety disorder associated. Patient also underwent COVID-19 testing that was found to be negative. Cardiology felt patient did not need any further cardiac testing including no echocardiogram or stress test. I spoke with Dr. Ulrich with confirmation of discharging home this a.m. Patient is felt to have received maximal hospital benefit and will be discharged home. Dedicated discharge time 32 minutes. Disposition: 01 HOME / SELF CARE / HOMELESS Final Discharge Diagnosis (Prints w/discharge instructions): Costochondritis, anxiety disorder, hypertension, BPH Core Measure Documentation - Palliative Care Palliative Care/ Comfort Measures: Not Applicable - Core Measures Any of the following diagnoses?: none Exam - Constitutional Vitals: Temp Pulse Resp BP Pulse Ox 97.3 F L 61 16 160/72 99 01/19/21 03:29 01/19/21 03:29 01/19/21 03:29 01/19/21 03:29 01/19/21 03:29 General appearance: Present: no acute distress, well-nourished - EENT Eyes: Present: PERRL ENT: hearing intact, clear oral mucosa - Neck Neck: Present: supple, normal ROM - Respiratory Respiratory effort: normal Respiratory: bilateral: CTA - Cardiovascular Heart Sounds: Present: S1 & S2. Absent: rub, click - Extremities Extremities: pulses symmetrical, No edema Peripheral Pulses: within normal limits - Abdominal General gastrointestinal: Present: soft, non-tender, non-distended, normal bowel sounds Male genitourinary: Present: normal - Integumentary Integumentary: Present: clear, warm, dry - Musculoskeletal Musculoskeletal: gait normal, strength equal bilaterally - Psychiatric Psychiatric: appropriate mood/affect, intact judgment & insight - Neurologic Neurologic: CNII-XII intact, moves all extremities Plan Activity: advance as tolerated Weight Bearing Status: Weight Bear as Tolerated Follow up with: PRIMARY CARE, [Primary Care Provider] - 3-5 Days
--- NOTE | 2021-01-19 11:33 | Progress Note ---
Assessment and Plan Hypertensive urgency, reason for admission. Patient is currently completely asymptomatic. Patient is able to ambulate without distress. Patient denies any chest pain or shortness of breath. Coronary artery disease status post CABG September 2020 in [place]. Recommendations: Patient may go home from a cardiac standpoint, on current regimen. Follow-up with primary gold nib grinder as outpatient. Subjective Date of service: 01/19/21 Principal diagnosis: Hypertensive urgency Interval history: Patient denies any chest pain or shortness of breath this morning. Telemetry revealing normal sinus rhythm. Blood pressure is better controlled on current regimen. Patient was originally admitted for hypertensive urgency after missing his blood pressure medications due to his luggage being stranded at the airport. Objective Vital Signs Temp Pulse Resp BP Pulse Ox 01/19/21 10:00 76 18 99 01/19/21 03:29 97.3 F L 61 16 160/72 99 01/18/21 23:55 98.0 F 58 L 16 109/54 99 01/18/21 23:34 97 01/18/21 20:39 56 L 01/18/21 19:40 97.4 F L 56 L 14 136/65 98 - Physical Examination General: Appears Well HEENT: Positive: PERRL Neck: Positive: neck supple Cardiac: Positive: Reg Rate and Rhythm Lungs: Positive: Normal Exam Neuro: Positive: Grossly Intact Abdomen: Positive: Soft Extremities: Absent: edema
== END 2021-01-19 12:00 | disposition home or self-care (01) ==
LOC: ED 13:40 → 4A 15:40
PROVIDERS: ADMIT Internal Medicine; ATTEND Hospitalist
DX: I20.8 Other forms of angina pectoris (principal); Z20.822 Contact with and (suspected) exposure to COVID-19; I10 Essential (primary) hypertension; N40.0 Benign prostatic hyperplasia without lower urinary tract symptoms; F32.A Depression, unspecified; F41.9 Anxiety disorder, unspecified; R94.31 Abnormal electrocardiogram [ECG] [EKG]; Z23 Encounter for immunization; Z71.85 Encounter for immunization safety counseling; Z79.82 Long term (current) use of aspirin; Z95.1 Presence of aortocoronary bypass graft; Z79.899 Other long term (current) drug therapy; Z98.890 Other specified postprocedural states
CPT/HCPCS: 36415; 71045; 80053; 83880; 84153; 84484; 85025; 85610; 90471; 90732; 93005; 96374; 99285; G0378; J1170; U0003; 90686